=== PATIENT | male | born 1995 | race Caucasian/White ===

== ENCOUNTER 2020-12-29 15:14 | Emergency (ER) | payer OTHER, SELFPAY ==
--- NOTE | ~2020-12-29 | US_ITS ---
US scrotum doppler INDICATION: Testicular pain radiating into the abdomen TECHNIQUE: Testicular sonogram utilizing grayscale and color Doppler FINDINGS: The testes are normal in size and appearance. No focal lesions are seen. The right testes measures 4.5 x 2.4 x 3.4 cm centimeters, and the left testis measures 4.6 x 2.4 x 3.2 cm cm. There is normal vascular flow to both testes. There is a 5 mm left epididymal cyst. There are small bilateral hydroceles. IMPRESSION: 1. Small bilateral hydroceles. 2: No evidence for testicular torsion. Reviewed, dictated and finalized at location [facility]
[2020-12-29 15:19] VITALS: BP 128/65; PULSE 73; RESP 18; TEMP 36.4; O2SAT 99
--- NOTE | 2020-12-29 18:47 | ED.GENADULT ---
HPI - General Adult General Chief complaint: Urogenital-Male Stated complaint: Groin pain. Time Seen by Provider: 12/29/20 17:09 Source: patient Mode of arrival: ambulatory Limitations: no limitations History of Present Illness HPI narrative: Patient 25-year-old male with chief complaint of pain in his scrotum earlier today which is now resolved. Patient denies fever, chills, nausea, vomiting, concern for STDs or any other symptoms. Patient denies any penile symptoms or urinary symptoms. Related Data Allergies Allergy/AdvReac Type Severity Reaction Status Date / Time No Known Allergies Allergy Unverified 01/20/13 10:37 Review of Systems Review of Systems: CONSTITUTIONAL: Denies fever, chills, or sweats. EYES: Denies visual changes, redness, or discharge. ENT: Denies rhinorrhea, congestion, sore throat, or otalgia. CARDIOVASCULAR: Denies chest pain, palpitations, or edema. RESPIRATORY: Denies cough or dyspnea. GASTROINTESTINAL: Denies abdominal pain, nausea, vomiting, or diarrhea. GENITOURINARY: Patient reports now resolved testicular pain denies dysuria or hematuria. SKIN: Denies rash or itching. MUSCULOSKELETAL: Denies back pain, joint pain, or myalgia. NEUROLOGIC: Denies headache, numbness, dizziness, or weakness. PSYCHIATRIC: Denies anxiety or depression. Exam Narrative: GENERAL: Well-appearing, well-nourished, and in no acute distress. HEAD: Normocephalic, atraumatic. CHEST: No respiratory distress. No tachypnea. EXTREMITIES: Normal range of motion. No edema. SKIN: Warm, dry, no rash. NEURO: No focal deficits. Alert and oriented x3. PSYCH: Normal mood and affect. Course Vital Signs Vital signs: Vital Signs Temperature 97.6 F 12/29/20 15:19 Pulse Rate 73 12/29/20 15:19 Respiratory Rate 18 12/29/20 15:19 Blood Pressure 128/65 12/29/20 15:19 Pulse Oximetry 99 12/29/20 15:19 Temperature 97.6 F 12/29/20 15:19 Pulse Rate 73 12/29/20 15:19 Respiratory Rate 18 12/29/20 15:19 Blood Pressure 128/65 12/29/20 15:19 Pulse Oximetry 99 12/29/20 15:19 Medical Decision Making MDM Narrative Medical decision making narrative: Patient states he has not been having pain for multiple hours. Patient does not show signs of testicular torsion or any acute emergency on his ultrasound. Patient has been instructed to return to emergency department if he has returning testicular pain or any signs of testicular torsion or other concerns. Patient has been instructed to follow-up with his primary care. Differential Diagnosis Differential Diagnosis: Testicular torsion, epididymitis, hydrocele Vital Signs Vital Signs: Vital Signs Temperature 97.6 F 12/29/20 15:19 Pulse Rate 73 12/29/20 15:19 Respiratory Rate 18 12/29/20 15:19 Blood Pressure 128/65 12/29/20 15:19 Pulse Oximetry 99 12/29/20 15:19 Temperature 97.6 F 12/29/20 15:19 Pulse Rate 73 12/29/20 15:19 Respiratory Rate 18 12/29/20 15:19 Blood Pressure 128/65 12/29/20 15:19 Pulse Oximetry 99 12/29/20 15:19 Discharge Plan Discharge Clinical Impression: Pain in testicle Qualifiers: Laterality: unspecified laterality Qualified Code(s): N50.819 - Testicular pain, unspecified Patient Disposition: Home, Self-Care Condition: Improved Instructions: Antibiotic Form, Testicle Pain (ED) Additional Instructions: Your ultrasound showed small bilateral hydroceles but no signs of epididymitis or testicular torsion. If your testicle pain returns or you have any worsening or emergent symptoms return to the emergency department. Follow-up/Referrals: Tay,Fabian Dhaliwal MD [Primary Care Provider] - Time of Disposition: 18:42
[2020-12-29 18:48] VITALS: BP 119/75; PULSE 78; RESP 16; O2SAT 100
== END 2020-12-29 18:48 | disposition home or self-care (01) ==
PROVIDERS: Emergency Provider Emergency Medicine; PCP Internal Medicine
DX: N50.819 Testicular pain, unspecified (principal)
CPT/HCPCS: 76870; 93976; 99284